=== PATIENT | male | born 1980 | race Caucasian/White ===

== ENCOUNTER 2017-10-10 00:26 | Emergency (ER) | payer OTHER ==
[~2017-10-10] VITALS: Ht 167.6 cm; Wt 108.9 kg
[2017-10-10 00:30] VITALS: BP_SYST 147
[2017-10-10 00:41] LABS: BILIRUBIN,URINE NEGATIVE (NEGATIVE); BLOOD, URINE 1+ (NEGATIVE); CLARITY/URINE CLEAR (CLEAR); COLOR,URINE YELLOW (YELLOW); GLUCOSE,URINE NEGATIVE (NEGATIVE); KETONES,URINE NEGATIVE (NEGATIVE); LEUKOCYTE ESTERASE ,URINE NEGATIVE (NEGATIVE); NITRITE, URINE NEGATIVE (NEGATIVE); PH,URINE 5.5 (5.0-8.0); PROTEIN URINE NEGATIVE (NEGATIVE); UROBILINOGEN,URINE 0.2 (0.2-1.0)
[2017-10-10] MEDS ORDERED: NACL 0.9% 1,000 ML IV ONE ×2 (00:45→01:45)
[2017-10-10 00:58] LABS: BACTERIA,URINE FEW /HPF (None Seen); WBC,URINE 0-3 /HPF (0-3)
[2017-10-10 01:21] LABS: BASOPHILS # (AUTO) 0.3 K/uL (0.0-0.2); BASOPHILS % (AUTO) 1.9 % (0.0-2.0); EOSINOPHILS # (AUTO) 0.7 K/uL (0.0-0.4); EOSINOPHILS % (AUTO) 5.3 % (0.0-4.0); HEMATOCRIT 44.2 % (36-54); HEMOGLOBIN 14.6 g/dL (14.0-18.0); LYMPHOCYTES # (AUTO) 2.5 K/uL (1.0-5.5); LYMPHOCYTES % (AUTO) 18.8 % (20.5-51.5); MEAN CORPUSCULAR HEMOGLOBIN 29 pg (27-31); MEAN CORPUSCULAR HGB CONC 33 % (32-36); MEAN CORPUSCULAR VOLUME 89 fL (79.0-98.0); MONOCYTES # (AUTO) 0.7 K/uL (0.0-1.0); MONOCYTES % (AUTO) 5.5 % (1.7-9.3); NEUTROPHILS # (AUTO) 9.2 K/uL (1.8-7.7); NEUTROPHILS % (AUTO) 68.5 % (40.0-70.0); PLATELET COUNT (AUTO) 229 K/uL (130-430); RED BLOOD CELL COUNT(AUTO) 4.96 MIL/uL (4.2-6.2); RED CELL DISTRIBUTION WIDTH 12.7 % (9.0-15.0); WHITE BLOOD COUNT (AUTO) 13.4 K/uL (4.8-10.8)
[2017-10-10 01:30] LABS: CALCIUM 8.8 mg/dL (8.4-11.0); CREATININE 0.94 mg/dL (0.55-1.30); POTASSIUM 3.6 mmol/L (3.5-5.1)
[2017-10-10 01:34] LABS: ALBUMIN 3.7 g/dL (3.4-4.8); TOTAL BILIRUBIN 0.3 mg/dL (0.0-1.0)
[2017-10-10] MEDS ORDERED: KETOROLAC TROMETHAMINE 30 MG VIAL IVP ONE (01:45)
[2017-10-10 02:32] VITALS: BP_SYST 152
== END 2017-10-10 02:32 | disposition home or self-care (01) ==
LOC: SED 00:26
DX: A08.4 Viral intestinal infection, unspecified (principal); Z88.0 Allergy status to penicillin
CPT/HCPCS: 36415; 80053; 81000; 83690; 85025; 96361; 96374; 99285; J1885; J7030

== ENCOUNTER 2017-10-12 22:50 | Inpatient (IN) | payer OTHER ==
[~2017-10-12] VITALS: Ht 167.6 cm; Wt 108.9 kg
[2017-10-12 23:20] VITALS: BP_SYST 158
[2017-10-12] MEDS ORDERED: NACL 0.9% 1,000 ML IV ONE (23:44)
[2017-10-12] MEDS ORDERED: ONDANSETRON HCL 4 MG/2 ML VIAL IVP ONE (23:45)
[2017-10-13 00:15] LABS: BASOPHILS % (AUTO) 0.3 % (0.0-2.0); EOSINOPHILS # (AUTO) 0.7 K/uL (0.0-0.4); EOSINOPHILS % (AUTO) 5.1 % (0.0-4.0); HEMATOCRIT 47.2 % (36-54); HEMOGLOBIN 15.9 g/dL (14.0-18.0); LYMPHOCYTES # (AUTO) 2.5 K/uL (1.0-5.5); LYMPHOCYTES % (AUTO) 17.7 % (20.5-51.5); MEAN CORPUSCULAR HEMOGLOBIN 30 pg (27-31); MEAN CORPUSCULAR HGB CONC 34 % (32-36); MEAN CORPUSCULAR VOLUME 88 fL (79.0-98.0); MONOCYTES # (AUTO) 0.7 K/uL (0.0-1.0); MONOCYTES % (AUTO) 4.8 % (1.7-9.3); NEUTROPHILS # (AUTO) 10.1 K/uL (1.8-7.7); NEUTROPHILS % (AUTO) 72.1 % (40.0-70.0); PLATELET COUNT (AUTO) 243 K/uL (130-430); RED BLOOD CELL COUNT(AUTO) 5.37 MIL/uL (4.2-6.2); RED CELL DISTRIBUTION WIDTH 12.7 % (9.0-15.0)
[2017-10-13 00:22] LABS: CALCIUM 9.2 mg/dL (8.4-11.0); CREATININE 1.06 mg/dL (0.55-1.30); POTASSIUM 3.3 mmol/L (3.5-5.1)
[2017-10-13 00:24] LABS: PROTHROMBIN TIME 10.4 SECS (9.5-12.5)
[2017-10-13 00:28] LABS: ALBUMIN 4.1 g/dL (3.4-4.8); TOTAL BILIRUBIN 0.5 mg/dL (0.0-1.0)
[2017-10-13 00:53] LABS: BILIRUBIN,URINE 1+ (NEGATIVE); CLARITY/URINE CLEAR (CLEAR); COLOR,URINE YELLOW (YELLOW); GLUCOSE,URINE NEGATIVE (NEGATIVE); KETONES,URINE 1+ (NEGATIVE); LEUKOCYTE ESTERASE ,URINE NEGATIVE (NEGATIVE); NITRITE, URINE NEGATIVE (NEGATIVE); PH,URINE 5.5 (5.0-8.0); PROTEIN URINE TRACE (NEGATIVE); UROBILINOGEN,URINE 0.2 (0.2-1.0)
[2017-10-13 00:55] LABS: BLOOD, URINE TRACE (NEGATIVE)
[2017-10-13 00:59] LABS: BACTERIA,URINE FEW /HPF (None Seen); MUCUS,URINE 2+ /LPF (None Seen); RBC,URINE 0-3 /HPF (0-3); WBC,URINE 0-3 /HPF (0-3)
[2017-10-13] MEDS ORDERED: MORPHINE 4 MG/ML INJ. SYRINGE IVP ONE ×2 (01:30)
[2017-10-13] MEDS ORDERED: NACL 0.9% 1,000 ML IV ONE (01:45)
[2017-10-13] MEDS ORDERED: CIPROFLOXACIN LACT 400 MG/D5W 200 ML IV ONE (02:15)
[2017-10-13] MEDS ORDERED: metroNIDAZOLE 500 mg/NS 100 ML IV ONE (02:15)
[2017-10-13] MEDS ORDERED: ONDANSETRON HCL 4 MG/2 ML VIAL IVP PRN (02:30)
[2017-10-13] MEDS ORDERED: ACETAMINOPHEN 325 MG TABLET PO PRN (02:30)
[2017-10-13] MEDS ORDERED: MORPHINE 2 MG/ML INJ. SYRINGE IVP PRN (02:30)
[2017-10-13 02:34] VITALS: BP_SYST 146
[2017-10-13] MEDS: D5/0.45 NS 1,000 ML IV SCH ×3 (04:04→20:33)
[2017-10-13 08:02] VITALS: BP_SYST 119
[2017-10-13] MEDS: HYDROcodone/ACETAMIN 5-325 MG TAB (NORCO/ VICODIN) PO PRN ×2 (09:20→20:36)
[2017-10-13] MEDS: MORPHINE 4 MG/ML INJ. SYRINGE IVP PRN ×2 (11:07→19:45)
[2017-10-13 12:16] VITALS: BP_SYST 121
[2017-10-13] MEDS ORDERED: POTASSIUM CHLORIDE 20 MEQ TAB.PRT.SR PO ONE (12:53)
[2017-10-13] MEDS: metroNIDAZOLE 500 mg/NS 100 ML IV SCH ×2 (14:19→21:34)
[2017-10-13 16:05] VITALS: BP_SYST 112
[2017-10-13 19:52] VITALS: BP_SYST 139
[2017-10-13] MEDS: CIPROFLOXACIN LACT 400 MG/D5W 200 ML IV SCH (20:32)
[2017-10-13 21:10] LABS: BARBITURATE, URINE NEGATIVE (NEG <=200); BENZODIAZEPINE, URINE NEGATIVE (NEG <=150); CANNABINOID, URINE NEGATIVE (NEG <=50); COCAINE, URINE NEGATIVE (NEG <=150); METHAMPHETAMINES SCREEN,URINE NEGATIVE (NEG <=500); OPIATE, URINE POSITIVE (NEG <=100); PHENCYCLIDINE SCREEN,URINE NEGATIVE (NEG <=25); UR TRICYCLIC ANTIDEPRESSANTS NEGATIVE (NEG <=300); URINE AMPHETAMINE NEGATIVE (NEG <=500); URINE METHADONE NEGATIVE (NEG <=200); URINE OXYCODONE SCREEN NEGATIVE (NEG <=100); URINE PROPOXYPHENE SCREEN NEGATIVE (NEG <=300)
[2017-10-13] MEDS: LORazepam 2 MG/ML VIAL IVP PRN (21:35)
[2017-10-14] MEDS: metroNIDAZOLE 500 mg/NS 100 ML IV SCH ×3 (05:29→22:03)
[2017-10-14 08:21] LABS: BASOPHILS % (AUTO) 0.3 % (0.0-2.0); EOSINOPHILS # (AUTO) 1.6 K/uL (0.0-0.4); EOSINOPHILS % (AUTO) 16.9 % (0.0-4.0); HEMATOCRIT 45.9 % (36-54); HEMOGLOBIN 15.6 g/dL (14.0-18.0); LYMPHOCYTES # (AUTO) 2.5 K/uL (1.0-5.5); LYMPHOCYTES % (AUTO) 27.5 % (20.5-51.5); MEAN CORPUSCULAR HEMOGLOBIN 30 pg (27-31); MEAN CORPUSCULAR HGB CONC 34 % (32-36); MEAN CORPUSCULAR VOLUME 89 fL (79.0-98.0); MONOCYTES # (AUTO) 0.5 K/uL (0.0-1.0); MONOCYTES % (AUTO) 5.8 % (1.7-9.3); NEUTROPHILS # (AUTO) 4.6 K/uL (1.8-7.7); NEUTROPHILS % (AUTO) 49.5 % (40.0-70.0); PLATELET COUNT (AUTO) 209 K/uL (130-430); RED BLOOD CELL COUNT(AUTO) 5.15 MIL/uL (4.2-6.2); RED CELL DISTRIBUTION WIDTH 12.8 % (9.0-15.0); WHITE BLOOD COUNT (AUTO) 9.2 K/uL (4.8-10.8)
[2017-10-14 08:40] LABS: CALCIUM 9.3 mg/dL (8.4-11.0); POTASSIUM 3.6 mmol/L (3.5-5.1)
[2017-10-14 08:41] LABS: ALBUMIN 3.7 g/dL (3.4-4.8); BILIRUBIN,DIRECT 0.2 mg/dL (0.0-0.3); C-REACTIVE PROTEIN QUANT 0.7 mg/dL (0-0.5); CREATININE 0.99 mg/dL (0.55-1.30); TOTAL BILIRUBIN 0.8 mg/dL (0.0-1.0)
[2017-10-14] MEDS: CIPROFLOXACIN LACT 400 MG/D5W 200 ML IV SCH ×2 (08:50→20:09)
[2017-10-14] MEDS: D5/0.45 NS 1,000 ML IV SCH ×2 (08:51→20:09)
[2017-10-14 08:56] LABS: TOTAL IRON BIND. CAPACITY 260 ug/dL (250-450)
[2017-10-14 09:31] VITALS: BP_SYST 121
[2017-10-14] MEDS ORDERED: LACTOBACILLUS RHAMNOSUS GG 1 CAP CAPSULE PO ONE (09:45)
[2017-10-14 09:54] LABS: ERYTHROCYTE SEDIMENTATION RATE 6 MM/HR (0-15)
[2017-10-14] MEDS: MORPHINE 4 MG/ML INJ. SYRINGE IVP PRN (10:12)
[2017-10-14] MEDS ORDERED: KETOROLAC TROMETHAMINE 30 MG VIAL IVP PRN (12:00)
[2017-10-14 12:18] VITALS: BP_SYST 142
[2017-10-14 16:21] VITALS: BP_SYST 139
[2017-10-14] MEDS: PANTOPRAZOLE SODIUM 40 MG/VIAL (PROTONIX) IVP SCH (20:09)
[2017-10-14] MEDS: LACTOBACILLUS RHAMNOSUS GG 1 CAP CAPSULE PO SCH (20:10)
[2017-10-14 20:37] VITALS: BP_SYST 134
[2017-10-14] MEDS: LORazepam 2 MG/ML VIAL IVP PRN (21:58)
[2017-10-15] VITALS: BP_SYST 126
[2017-10-15] MEDS: D5/0.45 NS 1,000 ML IV SCH (04:28)
[2017-10-15] MEDS: metroNIDAZOLE 500 mg/NS 100 ML IV SCH (05:35)
[2017-10-15 07:17] LABS: BASOPHILS % (AUTO) 0.3 % (0.0-2.0); EOSINOPHILS # (AUTO) 1.8 K/uL (0.0-0.4); EOSINOPHILS % (AUTO) 18.2 % (0.0-4.0); HEMATOCRIT 41.5 % (36-54); HEMOGLOBIN 14.4 g/dL (14.0-18.0); LYMPHOCYTES # (AUTO) 2.8 K/uL (1.0-5.5); LYMPHOCYTES % (AUTO) 28.4 % (20.5-51.5); MEAN CORPUSCULAR HEMOGLOBIN 31 pg (27-31); MEAN CORPUSCULAR HGB CONC 35 % (32-36); MEAN CORPUSCULAR VOLUME 90 fL (79.0-98.0); MONOCYTES # (AUTO) 0.7 K/uL (0.0-1.0); MONOCYTES % (AUTO) 6.8 % (1.7-9.3); NEUTROPHILS # (AUTO) 4.4 K/uL (1.8-7.7); PLATELET COUNT (AUTO) 185 K/uL (130-430); RED BLOOD CELL COUNT(AUTO) 4.64 MIL/uL (4.2-6.2); RED CELL DISTRIBUTION WIDTH 12.6 % (9.0-15.0); WHITE BLOOD COUNT (AUTO) 9.7 K/uL (4.8-10.8)
[2017-10-15 07:32] LABS: C-REACTIVE PROTEIN QUANT 0.7 mg/dL (0-0.5); CALCIUM 8.9 mg/dL (8.4-11.0); POTASSIUM 3.4 mmol/L (3.5-5.1)
[2017-10-15 08:00] VITALS: BP_SYST 128
[2017-10-15 08:08] LABS: HEPATITIS A AB, IgM Negative (Negative); HEPATITIS B CORE AB, IgM Negative (Negative); HEPATITIS B SURFACE AG Negative (Negative)
[2017-10-15] MEDS: PANTOPRAZOLE SODIUM 40 MG/VIAL (PROTONIX) IVP SCH (08:45)
[2017-10-15] MEDS: LACTOBACILLUS RHAMNOSUS GG 1 CAP CAPSULE PO SCH (08:45)
[2017-10-15] MEDS ORDERED: RIFAXIMIN 200 MG TABLET PO SCH (09:00)
[2017-10-15] MEDS ORDERED: VANCOMYCIN HCL 125 MG CAPSULE PO SCH (09:00)
[2017-10-15 10:16] LABS: ERYTHROCYTE SEDIMENTATION RATE 2 MM/HR (0-15)
[2017-10-15 11:03] LABS: NEUTROPHILS % (AUTO) 46.3 % (40.0-70.0)
[2017-10-15 12:00] VITALS: BP_SYST 117
[2017-10-15] MEDS ORDERED: LACT1CAP57 PO (13:11)
[2017-10-15] MEDS ORDERED: METR500T PO (13:11)
[2017-10-15 13:35] VITALS: BP_SYST 128
[2017-10-15 18:06] LABS: ANTI NUCLEAR AB WITH REFLEX Negative (Negative)
[2017-10-16 12:07] LABS: ANTI-SMOOTH MUSCLE AB 13 Units (0-19)
[2017-10-16 14:06] LABS: ATYPICAL pANCA <1:20 titer (Neg:<1:20); CYTOPLASMIC (C-ANCA) <1:20 titer (Neg:<1:20); CYTOPLASMIC (P-ANCA) <1:20 titer (Neg:<1:20)
== END 2017-10-15 14:10 | disposition home or self-care (01) | DRG 372 ==
LOC: SED 22:50 → SMU 10-13 02:26
PROVIDERS: ADMIT Preventive Medicine Preventive Medicine/Occupational Environmental Medicine; ATTEND Preventive Medicine Preventive Medicine/Occupational Environmental Medicine
DX: A04.72 Enterocolitis due to Clostridium difficile, not specified as recurrent (principal); R65.10 Systemic inflammatory response syndrome (SIRS) of non-infectious origin without acute organ dysfunction; E66.9 Obesity, unspecified; E87.6 Hypokalemia; R74.0 Nonspecific elevation of levels of transaminase and lactic acid dehydrogenase [LDH]; Z88.0 Allergy status to penicillin; Z68.38 Body mass index [BMI] 38.0-38.9, adult; Z83.79 Family history of other diseases of the digestive system
CPT/HCPCS: 36415; 76700-TC; 80048; 80053; 80074; 80076; 80307; 81000-TC; 82150-TC; 83516; 83540-TC; 83550-TC; 83605; 83690-TC; 85025; 85610-TC; 85651-TC; 86038; 86140; 86256; 87040-TC; 87045-TC; 87046; 87086; 87230-TC; 96361; 96365; 96375; 96376; 99285; C9113; J0744; J1885; J2060; J2270; J2405; J3490; J7030

== ENCOUNTER 2017-10-16 19:47 | Inpatient (IN) | payer OTHER ==
[~2017-10-16] VITALS: Ht 167.6 cm; Wt 114.8 kg
[~2017-10-16 19:47] MED LIST: LACT1CAP57 PO; METR500T PO
[2017-10-16 19:50] VITALS: BP_SYST 136
[2017-10-16] MEDS ORDERED: NACL 0.9% 1,000 ML IV ONE (20:44)
[2017-10-16] MEDS ORDERED: ONDANSETRON HCL 4 MG/2 ML VIAL IVP ONE (20:45)
[2017-10-16] MEDS ORDERED: MORPHINE 2 MG/ML INJ. SYRINGE IVP ONE (20:45)
[2017-10-16 21:01] LABS: BILIRUBIN,URINE NEGATIVE (NEGATIVE); BLOOD, URINE NEGATIVE (NEGATIVE); CLARITY/URINE CLEAR (CLEAR); COLOR,URINE YELLOW (YELLOW); GLUCOSE,URINE NEGATIVE (NEGATIVE); KETONES,URINE 1+ (NEGATIVE); LEUKOCYTE ESTERASE ,URINE NEGATIVE (NEGATIVE); NITRITE, URINE POSITIVE (NEGATIVE); PH,URINE 5.5 (5.0-8.0); PROTEIN URINE NEGATIVE (NEGATIVE); UROBILINOGEN,URINE 0.2 (0.2-1.0)
[2017-10-16 21:13] LABS: BACTERIA,URINE FEW /HPF (None Seen); RBC,URINE 0-3 /HPF (0-3); WBC,URINE 0-3 /HPF (0-3)
[2017-10-16 21:14] LABS: CALCIUM OXALATE CRYSTALS,UR 0-10 /HPF (None Seen); MUCUS,URINE 2+ /LPF (None Seen)
[2017-10-16] MEDS ORDERED: MORPHINE 4 MG/ML INJ. SYRINGE ONE (21:15)
[2017-10-16 21:24] LABS: BASOPHILS # (AUTO) 0.1 K/uL (0.0-0.2); BASOPHILS % (AUTO) 0.5 % (0.0-2.0); EOSINOPHILS # (AUTO) 1.6 K/uL (0.0-0.4); EOSINOPHILS % (AUTO) 15.7 % (0.0-4.0); HEMATOCRIT 45.1 % (36-54); HEMOGLOBIN 15.4 g/dL (14.0-18.0); LYMPHOCYTES # (AUTO) 2.8 K/uL (1.0-5.5); LYMPHOCYTES % (AUTO) 27.1 % (20.5-51.5); MEAN CORPUSCULAR HEMOGLOBIN 30 pg (27-31); MEAN CORPUSCULAR HGB CONC 34 % (32-36); MEAN CORPUSCULAR VOLUME 89 fL (79.0-98.0); MONOCYTES # (AUTO) 0.6 K/uL (0.0-1.0); MONOCYTES % (AUTO) 5.8 % (1.7-9.3); NEUTROPHILS # (AUTO) 5.2 K/uL (1.8-7.7); PLATELET COUNT (AUTO) 200 K/uL (130-430); RED BLOOD CELL COUNT(AUTO) 5.06 MIL/uL (4.2-6.2); RED CELL DISTRIBUTION WIDTH 12.9 % (9.0-15.0); WHITE BLOOD COUNT (AUTO) 10.3 K/uL (4.8-10.8)
[2017-10-16 21:51] LABS: CALCIUM 9.2 mg/dL (8.4-11.0); CREATININE 1.03 mg/dL (0.55-1.30); POTASSIUM 3.4 mmol/L (3.5-5.1)
[2017-10-16 21:55] LABS: TOTAL BILIRUBIN 0.7 mg/dL (0.0-1.0)
[2017-10-17] MEDS ORDERED: L.RH1CAP PO (00:23)
[2017-10-17] MEDS ORDERED: MORPHINE 2 MG/ML INJ. SYRINGE IVP PRN ×2 (00:45→03:00)
[2017-10-17] MEDS ORDERED: POTASSIUM CHLORIDE 30 MEQ in NS 250 ML IV ONE (00:45)
[2017-10-17 01:00] VITALS: BP_SYST 126
[2017-10-17] MEDS ORDERED: KCL 40 mEq in 100 mL (PREMIX) 100 ML IV ONE (01:25)
[2017-10-17] MEDS ORDERED: metroNIDAZOLE 500 mg/NS 100 ML IV ONE (01:30)
[2017-10-17] MEDS ORDERED: MORPHINE 4 MG/ML INJ. SYRINGE IVP PRN ×2 (02:30→02:45)
[2017-10-17] MEDS: MORPHINE 4 MG/ML INJ. SYRINGE IVP PRN ×3 (03:18→21:27)
[2017-10-17] MEDS: KCL 20 mEq in NS 1000 mL 1,000 ML IV SCH ×3 (06:00→20:45)
[2017-10-17 06:37] LABS: BASOPHILS % (AUTO) 0.4 % (0.0-2.0); EOSINOPHILS # (AUTO) 1.6 K/uL (0.0-0.4); EOSINOPHILS % (AUTO) 18.4 % (0.0-4.0); HEMATOCRIT 43.2 % (36-54); HEMOGLOBIN 14.6 g/dL (14.0-18.0); LYMPHOCYTES # (AUTO) 2.8 K/uL (1.0-5.5); LYMPHOCYTES % (AUTO) 31.1 % (20.5-51.5); MEAN CORPUSCULAR HEMOGLOBIN 30 pg (27-31); MEAN CORPUSCULAR HGB CONC 34 % (32-36); MEAN CORPUSCULAR VOLUME 90 fL (79.0-98.0); MONOCYTES # (AUTO) 0.6 K/uL (0.0-1.0); MONOCYTES % (AUTO) 6.8 % (1.7-9.3); NEUTROPHILS # (AUTO) 3.9 K/uL (1.8-7.7); NEUTROPHILS % (AUTO) 43.3 % (40.0-70.0); PLATELET COUNT (AUTO) 199 K/uL (130-430); RED BLOOD CELL COUNT(AUTO) 4.82 MIL/uL (4.2-6.2); RED CELL DISTRIBUTION WIDTH 12.6 % (9.0-15.0); WHITE BLOOD COUNT (AUTO) 8.9 K/uL (4.8-10.8)
[2017-10-17 07:21] LABS: ALBUMIN 3.7 g/dL (3.4-4.8); CALCIUM 9.2 mg/dL (8.4-11.0); CREATININE 0.97 mg/dL (0.55-1.30); POTASSIUM 3.9 mmol/L (3.5-5.1); TOTAL BILIRUBIN 0.7 mg/dL (0.0-1.0)
[2017-10-17] MEDS ORDERED: ACETAMINOPHEN 325 MG TABLET PO PRN (08:00)
[2017-10-17 08:17] VITALS: BP_SYST 123
[2017-10-17] MEDS: metroNIDAZOLE 500 mg/NS 100 ML IV SCH ×3 (08:31→23:21)
[2017-10-17] MEDS: FAMOTIDINE 20 MG TABLET PO SCH (10:05)
[2017-10-17] MEDS: VANCOMYCIN HCL 250 MG CAPSULE PO SCH ×4 (10:05→21:25)
[2017-10-17 11:09] LABS: NEUTROPHILS % (AUTO) 50.9 % (40.0-70.0)
[2017-10-17 11:39] VITALS: BP_SYST 124
[2017-10-17] MEDS ORDERED: LACTOBACILLUS RHAMNOSUS GG 1 CAP CAPSULE PO ONE (13:00)
[2017-10-17 16:00] VITALS: BP_SYST 121
[2017-10-17 20:11] VITALS: BP_SYST 121
[2017-10-17] MEDS: LACTOBACILLUS RHAMNOSUS GG 1 CAP CAPSULE PO SCH (21:25)
[2017-10-18 00:04] VITALS: BP_SYST 123
[2017-10-18] MEDS: metroNIDAZOLE 500 mg/NS 100 ML IV SCH ×3 (05:03→22:07)
[2017-10-18] MEDS: KCL 20 mEq in NS 1000 mL 1,000 ML IV SCH ×2 (05:03→16:24)
[2017-10-18 08:00] VITALS: BP_SYST 99
[2017-10-18] MEDS: LACTOBACILLUS RHAMNOSUS GG 1 CAP CAPSULE PO SCH ×2 (09:10→22:07)
[2017-10-18] MEDS: VANCOMYCIN HCL 250 MG CAPSULE PO SCH ×4 (09:10→22:06)
[2017-10-18] MEDS: FAMOTIDINE 20 MG TABLET PO SCH (09:10)
[2017-10-18] MEDS: ONDANSETRON HCL 4 MG/2 ML VIAL IVP PRN ×2 (09:25→16:33)
[2017-10-18] MEDS: MORPHINE 4 MG/ML INJ. SYRINGE IVP PRN ×4 (09:25→20:09)
[2017-10-18 11:26] VITALS: BP_SYST 107
[2017-10-18] MEDS ORDERED: MORPHINE 4 MG/ML INJ. SYRINGE IVP PRN (15:45)
[2017-10-18] MEDS ORDERED: MORPHINE 2 MG/ML INJ. SYRINGE IVP ONE (15:45)
[2017-10-18 16:00] VITALS: BP_SYST 132
[2017-10-18] MEDS ORDERED: MORPHINE 4 MG/ML INJ. SYRINGE IVP ONE (16:15)
[2017-10-18 20:05] VITALS: BP_SYST 131
[2017-10-19 01:59] VITALS: BP_SYST 109
[2017-10-19] MEDS: KCL 20 mEq in NS 1000 mL 1,000 ML IV SCH ×3 (03:44→22:45)
[2017-10-19 07:20] LABS: BASOPHILS % (AUTO) 0.4 % (0.0-2.0); EOSINOPHILS # (AUTO) 1.9 K/uL (0.0-0.4); EOSINOPHILS % (AUTO) 19.8 % (0.0-4.0); HEMATOCRIT 44.7 % (36-54); HEMOGLOBIN 14.7 g/dL (14.0-18.0); LYMPHOCYTES # (AUTO) 2.8 K/uL (1.0-5.5); LYMPHOCYTES % (AUTO) 29.7 % (20.5-51.5); MEAN CORPUSCULAR HEMOGLOBIN 29 pg (27-31); MEAN CORPUSCULAR HGB CONC 33 % (32-36); MEAN CORPUSCULAR VOLUME 90 fL (79.0-98.0); MONOCYTES # (AUTO) 0.6 K/uL (0.0-1.0); MONOCYTES % (AUTO) 6.4 % (1.7-9.3); NEUTROPHILS # (AUTO) 4.1 K/uL (1.8-7.7); PLATELET COUNT (AUTO) 176 K/uL (130-430); RED BLOOD CELL COUNT(AUTO) 4.98 MIL/uL (4.2-6.2); RED CELL DISTRIBUTION WIDTH 13.1 % (9.0-15.0); WHITE BLOOD COUNT (AUTO) 9.4 K/uL (4.8-10.8)
[2017-10-19 07:50] VITALS: BP_SYST 125
[2017-10-19 07:50] LABS: ALBUMIN 3.5 g/dL (3.4-4.8); BILIRUBIN,DIRECT 0.2 mg/dL (0.0-0.3); CALCIUM 8.9 mg/dL (8.4-11.0); CREATININE 0.86 mg/dL (0.55-1.30); POTASSIUM 3.6 mmol/L (3.5-5.1); TOTAL BILIRUBIN 0.5 mg/dL (0.0-1.0)
[2017-10-19] MEDS: VANCOMYCIN HCL 250 MG CAPSULE PO SCH ×4 (08:48→21:55)
[2017-10-19] MEDS: LACTOBACILLUS RHAMNOSUS GG 1 CAP CAPSULE PO SCH ×2 (08:48→21:55)
[2017-10-19] MEDS: FAMOTIDINE 20 MG TABLET PO SCH (08:48)
[2017-10-19] MEDS: metroNIDAZOLE 500 mg/NS 100 ML IV SCH ×3 (08:49→21:55)
[2017-10-19 09:56] LABS: NEUTROPHILS % (AUTO) 43.7 % (40.0-70.0)
[2017-10-19 12:03] VITALS: BP_SYST 136
[2017-10-19 15:59] VITALS: BP_SYST 129
[2017-10-19] MEDS: MORPHINE 4 MG/ML INJ. SYRINGE IVP PRN ×2 (18:38→23:47)
[2017-10-19 19:40] VITALS: BP_SYST 125
[2017-10-20 00:37] VITALS: BP_SYST 131
[2017-10-20] MEDS: KCL 20 mEq in NS 1000 mL 1,000 ML IV SCH ×2 (06:28→16:54)
[2017-10-20] MEDS: metroNIDAZOLE 500 mg/NS 100 ML IV SCH ×3 (06:28→21:37)
[2017-10-20 07:31] LABS: ALBUMIN 3.4 g/dL (3.4-4.8); CALCIUM 8.9 mg/dL (8.4-11.0); CREATININE 0.91 mg/dL (0.55-1.30); POTASSIUM 4.1 mmol/L (3.5-5.1); TOTAL BILIRUBIN 0.6 mg/dL (0.0-1.0)
[2017-10-20] MEDS: VANCOMYCIN HCL 250 MG CAPSULE PO SCH ×4 (08:12→21:37)
[2017-10-20] MEDS: LACTOBACILLUS RHAMNOSUS GG 1 CAP CAPSULE PO SCH ×2 (08:12→21:37)
[2017-10-20] MEDS: FAMOTIDINE 20 MG TABLET PO SCH (08:12)
[2017-10-20 08:22] VITALS: BP_SYST 126
[2017-10-20] MEDS: MORPHINE 4 MG/ML INJ. SYRINGE IVP PRN (09:04)
[2017-10-20 11:57] VITALS: BP_SYST 120
[2017-10-20] MEDS ORDERED: KETOROLAC TROMETHAMINE 30 MG VIAL IM PRN (12:15)
[2017-10-20] MEDS: KETOROLAC TROMETHAMINE 30 MG VIAL IVP PRN ×2 (13:11→19:47)
[2017-10-20 20:00] VITALS: BP_SYST 119
[2017-10-21 00:21] VITALS: BP_SYST 121
[2017-10-21] MEDS: KCL 20 mEq in NS 1000 mL 1,000 ML IV SCH ×2 (03:51→15:11)
[2017-10-21] MEDS: metroNIDAZOLE 500 mg/NS 100 ML IV SCH ×2 (05:37→15:11)
[2017-10-21 07:04] LABS: BASOPHILS # (AUTO) 0.1 K/uL (0.0-0.2); BASOPHILS % (AUTO) 1.4 % (0.0-2.0); EOSINOPHILS # (AUTO) 1.9 K/uL (0.0-0.4); EOSINOPHILS % (AUTO) 20.5 % (0.0-4.0); HEMOGLOBIN 14.1 g/dL (14.0-18.0); LYMPHOCYTES # (AUTO) 2.9 K/uL (1.0-5.5); LYMPHOCYTES % (AUTO) 30.6 % (20.5-51.5); MEAN CORPUSCULAR HEMOGLOBIN 31 pg (27-31); MEAN CORPUSCULAR HGB CONC 34 % (32-36); MEAN CORPUSCULAR VOLUME 91 fL (79.0-98.0); MONOCYTES # (AUTO) 0.7 K/uL (0.0-1.0); NEUTROPHILS # (AUTO) 3.8 K/uL (1.8-7.7); NEUTROPHILS % (AUTO) 40.5 % (40.0-70.0); PLATELET COUNT (AUTO) 172 K/uL (130-430); RED BLOOD CELL COUNT(AUTO) 4.62 MIL/uL (4.2-6.2); RED CELL DISTRIBUTION WIDTH 13.1 % (9.0-15.0); WHITE BLOOD COUNT (AUTO) 9.4 K/uL (4.8-10.8)
[2017-10-21 07:22] LABS: CALCIUM 8.4 mg/dL (8.4-11.0); CREATININE 0.92 mg/dL (0.55-1.30); POTASSIUM 3.7 mmol/L (3.5-5.1)
[2017-10-21 08:22] VITALS: BP_SYST 128
[2017-10-21] MEDS: KETOROLAC TROMETHAMINE 30 MG VIAL IVP PRN (08:39)
[2017-10-21] MEDS: LACTOBACILLUS RHAMNOSUS GG 1 CAP CAPSULE PO SCH (08:39)
[2017-10-21] MEDS: FAMOTIDINE 20 MG TABLET PO SCH (08:40)
[2017-10-21] MEDS: VANCOMYCIN HCL 250 MG CAPSULE PO SCH ×2 (08:40→15:11)
[2017-10-21 11:25] VITALS: BP_SYST 118
[2017-10-21 15:40] VITALS: BP_SYST 124
[2017-10-21 16:19] VITALS: BP_SYST 123
== END 2017-10-21 16:00 | disposition home or self-care (01) | DRG 372 ==
LOC: SED 19:47 → STU 10-17 00:31 → SMU 10-20 18:27
PROVIDERS: ADMIT Internal Medicine; ATTEND Internal Medicine
DX: A04.71 Enterocolitis due to Clostridium difficile, recurrent (principal); Z68.41 Body mass index [BMI] 40.0-44.9, adult; K76.0 Fatty (change of) liver, not elsewhere classified; E66.9 Obesity, unspecified; R73.9 Hyperglycemia, unspecified; E87.6 Hypokalemia; Z78.9 Other specified health status; Z88.0 Allergy status to penicillin
CPT/HCPCS: 36415; 80048; 80053; 80076; 81000-TC; 83605; 83690-TC; 83735-TC; 85025; 87040-TC; 87081; 87086; 89055; 93005; 96361; 96374; 96375; 99285; J1885; J2270; J2405; J3480; J3490; J7030; J7050

== ENCOUNTER 2021-04-18 18:20 | Emergency (ER) | payer BC, OTHER ==
[~2021-04-18] VITALS: Ht 167.6 cm; Wt 117.9 kg
[~2021-04-18 18:20] MED LIST changes: +L.RH1CAP PO; -LACT1CAP57 PO; -METR500T PO
[2021-04-18 18:38] VITALS: BP_SYST 149
[2021-04-18] MEDS ORDERED: NACL 0.9% 1,000 ML IV ONE (19:45)
[2021-04-18 20:45] LABS: BASOPHILS # (AUTO) 0.1 K/uL (0.0-0.2); BASOPHILS % (AUTO) 0.6 % (0.0-2.0); EOSINOPHILS # (AUTO) 0.1 K/uL (0.0-0.4); EOSINOPHILS % (AUTO) 0.9 % (0.0-4.0); HEMATOCRIT 42.6 % (36-54); HEMOGLOBIN 14.6 g/dL (14.0-18.0); LYMPHOCYTES # (AUTO) 2.3 K/uL (1.0-5.5); LYMPHOCYTES % (AUTO) 20.7 % (20.5-51.5); MEAN CORPUSCULAR HEMOGLOBIN 31 pg (27-31); MEAN CORPUSCULAR HGB CONC 34 % (32-36); MEAN CORPUSCULAR VOLUME 89 fL (79.0-98.0); MONOCYTES # (AUTO) 0.8 K/uL (0.0-1.0); MONOCYTES % (AUTO) 7.1 % (1.7-9.3); NEUTROPHILS # (AUTO) 7.9 K/uL (1.8-7.7); NEUTROPHILS % (AUTO) 70.7 % (40.0-70.0); PLATELET COUNT (AUTO) 201 K/uL (130-430); RED BLOOD CELL COUNT(AUTO) 4.78 MIL/uL (4.2-6.2); RED CELL DISTRIBUTION WIDTH 13.8 % (9.0-15.0); WHITE BLOOD COUNT (AUTO) 11.1 K/uL (4.8-10.8)
[2021-04-18] MEDS ORDERED: ACETAMINOPHEN 325 MG TABLET PO ONE (21:00)
[2021-04-18 21:08] LABS: CALCIUM 9.8 mg/dL (8.4-11.0); CREATININE 0.95 mg/dL (0.55-1.30); POTASSIUM 4.4 mmol/L (3.5-5.1)
[2021-04-18 21:15] LABS: TOTAL BILIRUBIN 0.5 mg/dL (0.0-1.0)
[2021-04-18] MEDS ORDERED: DICYCLOMINE HCL 10 MG/5 ML SOLUTION PO ONE (22:00)
[2021-04-18] MEDS ORDERED: DICYCLOMINE HCL 10 MG/5 ML SOLUTION ONE (22:10)
[2021-04-18] MEDS ORDERED: DICY10CA13 PO (22:16)
[2021-04-18 22:54] VITALS: BP_SYST 119
== END 2021-04-18 22:54 | disposition home or self-care (01) ==
LOC: SED 18:20
DX: R10.84 Generalized abdominal pain (principal); R19.7 Diarrhea, unspecified; Z88.0 Allergy status to penicillin; Z79.899 Other long term (current) drug therapy
CPT/HCPCS: 36415; 80053; 83690; 85025; 87045; 87177; 87230; 96360; 99283; J7030; 87046